=== PATIENT | male | born 1965 | race Caucasian/White ===

== ENCOUNTER 2017-10-01 14:10 | Emergency (ER) | payer OTHER ==
[2017-10-01 14:20] VITALS: BP 153/82; PULSE 98; TEMP 98.4; BMI 25.0
[2017-10-01] MEDS ORDERED: IBUPROFEN 400 MG TABLET (FP) PO ONE ×2 (14:24→14:26)
[2017-10-01] MEDS ORDERED: DIPHTH,PERTUSS(ACELL),TET 0.5 ML DISP.SYRIN IM ONE (14:25)
--- NOTE | 2017-10-01 14:26 | PDOC ---
Attending Attestation - HPI HPI: 10/01/17 14:34 The patient is a 52 year old male, with no significant past medical history, who presents to the emergency department with, a laceration on the tip of the 2nd finger of the left hand s/p saw accident at work. The patient reports mild pain but denies numbness or loss of sensation. Patient denies other complaints. Allergies: NKA Documentation prepared by Edgar Montague, acting as certified medical transcriptionist for Olga Arroyo MD. <Edgar Montague - Last Filed: 10/01/17 14:34> - Resident Resident Name: AzucenaHalie - ED Attending Attestation I have performed the following: I have examined & evaluated the patient, The case was reviewed & discussed with the resident, I agree w/resident's findings & plan, Exceptions are as noted - Physicial Exam PE: GENERAL: Awake, alert, and fully oriented, in no acute distress HEAD: No signs of trauma EXTREMITIES: Normal range of motion, no edema. No clubbing or cyanosis. No cords, erythema. L index finger with laceration involving the tip of the finger , extensing partially through the nail. NEUROLOGICAL: Cranial nerves II through XII grossly intact. Normal speech, normal gait SKIN: Warm, Dry, normal turgor, no rashes or lesions noted. - Medical Decision Making Laceration repaired in ED. There was some skin avulsion due to the saw, however , the skin was approximated well. Treated with abx for open tuft fx. Splint placed. Stable for DC home. <Olga Arroyo - Last Filed: 10/03/17 09:45>
--- NOTE | 2017-10-01 14:45 | PDOC ---
History of Present Illness - General Chief Complaint: Laceration Stated Complaint: WORK INJURY Time Seen by Provider: 10/01/17 14:21 - History of Present Illness Initial Comments: 10/04/17 08:24 52 y.o. male with no PMH presents to ED w/laceration on distal phalanx of L 2nd digit. Patient states he sliced the tip of his finger while using a saw at his job as a [employer]. 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 Cannot specifically recall date of last tetanus injection. Past History - Past Medical History Allergies/Adverse Reactions: Allergies Allergy/AdvReac Type Severity Reaction Status Date / Time No Known Allergies Allergy Verified 10/01/17 14:18 Home Medications: Ambulatory Orders Cephalexin [Keflex] 500 mg PO BID 14 Days #14 capsule 10/01/17 COPD: No Other medical history: denies - Immunization History Immunization Up to Date: Yes - Suicide/Smoking/Psychosocial Hx Smoking History: Never smoked Have you smoked in the past 12 months: No Information on smoking cessation initiated: No Hx Alcohol Use: No Drug/Substance Use Hx: No Substance Use Type: None Review of Systems - Review of Systems Constitutional: No: Chills, Fever Respiratory: No: Cough, Shortness of Breath Cardiac (ROS): No: Chest Pain, Palpitations, Syncope ABD/GI: No: Constipated, Diarrhea, Nausea, Vomiting : Yes: Burning, Dysuria Neurological: No: Numbness, Paresthesia *Physical Exam - Vital Signs Last Vital Signs Temp Pulse Resp BP Pulse Ox 98.4 F 98 H 20 153/82 100 10/01/17 14:18 10/01/17 14:18 10/01/17 14:18 10/01/17 14:18 10/01/17 14:18 - Physical Exam General Appearance: Yes: Nourished, Appropriately Dressed Respiratory/Chest: positive: Lungs Clear Cardiovascular: positive: S1, S2 Gastrointestinal/Abdominal: positive: Normal Bowel Sounds, Soft Extremity: positive: Other (R distal phalanx laceration from volar surface to nail bed; ) Integumentary: positive: Normal Color, Dry, Warm Neurologic: positive: Fully Oriented, Alert ED Treatment Course - RADIOLOGY Radiology Studies Ordered: Category Date Time Status HAND- LEFT [RAD] Stat Radiology 10/01/17 14:24 Taken - Medications Given in the ED: ED Medications Discontinued Medications Generic Name Dose Route Start Last Admin Trade Name Loyd PRN Reason Stop Dose Admin Diphtheria/Tetanus/Acell Pertussis 0.5 ml 10/01/17 14:25 10/01/17 14:38 Boostrix - IM 10/01/17 14:26 0.5 ml .ONCE ONE Administration Ibuprofen 800 mg 10/01/17 14:24 10/01/17 14:38 Motrin - PO 10/01/17 14:25 800 mg ONCE ONE Administration Medical Decision Making - Medical Decision Making 10/04/17 08:39 Patient is a 52 y.o. male who presents following a laceration to his L 2nd digit. Digital nerve block with 2% Lidocaine. Laceration repair performed with Dr. Arroyo using 4 simple interrupted sutures, 1 mattress suture and nail attachment with Dermabond. Patient tolerated procedure, Boostrix IM and prescribed Cephaxelin for MSSA/strep coverage. Patient counseled on return precautions and otherwise instructed to return to ED in 10 days for suture removal. *DC/Admit/Observation/Transfer Diagnosis at time of Disposition: Laceration - Discharge Dispostion Disposition: HOME Condition at time of disposition: Good Admit: No - Prescriptions Prescriptions: Cephalexin [Keflex] 500 mg PO BID 14 Days #14 capsule - Referrals Referrals: Edda Odom MD [Primary Care Provider] - - Patient Instructions Printed Discharge Instructions: DI for Laceration Repair Additional Instructions: You can use Ibuprofen for your pain. A prescription has been called to your pharmacy. Please take the entire antibiotic course. Return to the Emergency Department on October 12, 2017 for suture removal. Should you experience severe pain, redness, or discomfort return to the ED immediately for evaluation. - Post Discharge Activity
[2017-10-01] MEDS ORDERED: CEPHALEXIN MONOHYDRATE 250 MG CAPSULE (FP) PO ONE (14:51)
[2017-10-01] MEDS ORDERED: CEPHALEXIN MONOHYDRATE 250 MG CAPSULE (FP) ONE (14:59)
[2017-10-01] MEDS ORDERED: LIDOCAINE HCL 2% (20ML MULTI-DOSE VIAL) NR ONE (15:01)
== END 2017-10-01 16:19 | disposition home or self-care (01) ==
LOC: JER 14:10
PROC: 3E0234Z Introduction of Serum, Toxoid and Vaccine into Muscle, Percutaneous Approach (ICD-10-PCS; principal; 2017-10-01)
DX: S61.311A Laceration without foreign body of left index finger with damage to nail, initial encounter (principal); W27.0XXA Contact with workbench tool, initial encounter; Y93.89 Activity, other specified; Y92.89 Other specified places as the place of occurrence of the external cause; Y99.0 Civilian activity done for income or pay
CPT/HCPCS: 73130-TC-LT; 90715; 99282-25

== ENCOUNTER 2017-10-13 11:07 | Emergency (ER) | payer OTHER, BC ==
[2017-10-13 11:28] VITALS: BP 135/87; PULSE 67; TEMP 97.9; BMI 25.0
--- NOTE | 2017-10-13 12:06 | PDOC ---
Suture Removal/Wound Check HPI - History of Present Illness Chief Complaint: Suture/Staple Removal(Here) Stated Complaint: SUTURE REMOVAL Time Seen by Provider: 10/13/17 12:03 History Source: Yes: Patient Exam Limitations: Yes: No Limitations Treated at: [facility] Date of Last ED visit: 10/01/17 - Previous ED Treatment Type of procedure performed on last visit: Yes: Laceration Repair Tetanus Immunization: Yes: Given at last ED visit Antibiotics Prescribed: Yes - Onset of Previous Treatment Date of Occurence: 10/01/17 Past History - Past Medical History Allergies/Adverse Reactions: Allergies Allergy/AdvReac Type Severity Reaction Status Date / Time No Known Allergies Allergy Verified 10/13/17 11:28 Home Medications: Ambulatory Orders Cephalexin [Keflex] 500 mg PO BID 14 Days #14 capsule 10/01/17 COPD: No - Immunization History Immunization Up to Date: Yes - Suicide/Smoking/Psychosocial Hx Smoking History: Never smoked Have you smoked in the past 12 months: No Hx Alcohol Use: No Drug/Substance Use Hx: No Substance Use Type: None Medical Decision Making - Medical Decision Making patient here for suture removal from left index finger. He denies f/c, erythema /swelling/streaking to affected finger. He has full ROM of affected finger. 4 sutures removed without difficulty. skin remained intact. Will discharge to home. *DC/Admit/Observation/Transfer Diagnosis at time of Disposition: Visit for suture removal - Discharge Dispostion Disposition: HOME Condition at time of disposition: Good - Referrals - Patient Instructions Printed Discharge Instructions: DI for Suture Removal - Post Discharge Activity
== END 2017-10-13 12:31 | disposition home or self-care (01) ==
LOC: JER 11:07 → JERFT 11:07 → JER 12:31
DX: Z48.02 Encounter for removal of sutures (principal)
CPT/HCPCS: 99281-25